=== PATIENT | male | born 1990 | race African-American/Black ===

== ENCOUNTER 2017-03-15 15:54 | Emergency (ER) | payer SELFPAY ==
[~2017-03-15] VITALS: Ht 167.6 cm; Wt 72.6 kg
[2017-03-15 16:32] VITALS: BP 123/82
[2017-03-15] MEDS ORDERED: traMADol HCL 50 MG TAB PO ONE (17:15)
== END 2017-03-15 17:12 | disposition home or self-care (01) ==
LOC: ER 16:04
DX: S61.213D Laceration without foreign body of left middle finger without damage to nail, subsequent encounter (principal); X58.XXXD Exposure to other specified factors, subsequent encounter; Y92.89 Other specified places as the place of occurrence of the external cause; Y93.89 Activity, other specified
CPT/HCPCS: 73140

== ENCOUNTER 2021-12-21 22:11 | Emergency (ER) | payer OTHER ==
[~2021-12-21] VITALS: Ht 170.2 cm; Wt 79.4 kg
[2021-12-21 22:51] VITALS: BP 122/71
[2021-12-22] MEDS ORDERED: AMOX-277 PO (00:49)
[2021-12-22] MEDS ORDERED: TETANUS-DIPTH-ACEL PERTUSSIS 0.5ML SYR Tdap IM ONE (01:00)
== END 2021-12-22 01:21 | disposition home or self-care (01) ==
LOC: ER 22:11
DX: S61.451A Open bite of right hand, initial encounter (principal); W54.0XXA Bitten by dog, initial encounter; Y93.89 Activity, other specified; Y92.89 Other specified places as the place of occurrence of the external cause; Y99.8 Other external cause status
CPT/HCPCS: 90471; 90715